=== PATIENT | male | born 1985 | race Hispanic/Latino ===

== ENCOUNTER 2017-03-17 00:18 | Emergency (ER) | payer OTHER ==
[~2017-03-17] VITALS: Ht 172.7 cm; Wt 100.0 kg
[2017-03-17] MEDS ORDERED: ULTRAM50 M1 PO (01:06)
[2017-03-17] MEDS ORDERED: AMOXICILLIN500 MG PO (01:06)
[2017-03-17 01:15] VITALS: BP 131/101
== END 2017-03-17 01:47 | disposition home or self-care (01) | DRG 159 ==
LOC: EDBD 00:18 → ED 00:18
DX: K04.7 Periapical abscess without sinus (principal); K08.89 Other specified disorders of teeth and supporting structures; S02.5XXA Fracture of tooth (traumatic), initial encounter for closed fracture

== ENCOUNTER 2022-05-17 21:34 | Emergency (ER) | payer SELFPAY ==
[~2022-05-17] VITALS: Ht 172.7 cm; Wt 106.0 kg
[~2022-05-17 21:34] MED LIST: AMOXICILLIN500 MG PO; ULTRAM50 M1 PO
[2022-05-17 23:07] LABS: BASO% 0.1 % (0-3); HEMATOCRIT 46.8 % (39.0-50.0); HEMOGLOBIN 15.5 g/dl (14.0-18.0); IMMATURE GRANULOCYTES 0.1 % (0.0-5.0); LYMPH% 14.5 % (15-41); MEAN CELL VOLUME 83.7 fL CALC (80.0-100.0); MEAN CORPUSCULAR HGB 27.7 pG CALC (26.0-32.0); MEAN CORPUSCULAR HGB CONC 33.1 g/dL CAL (32.0-36.0); MONO% 6.9 % (2-13); NEUT# 6.97 thou/uL (1.82-7.42); NEUT% 76.4 % (42-76); RED BLOOD COUNT 5.59 mill/uL (4.70-6.10); RED CELL DISTRI WIDTH 12.5 % (11.5-15.5)
[2022-05-17 23:17] LABS: ALBUMIN 4.6 g/dL (3.2-5.0); ALKALINE PHOSPHATASE 53 u/l (38-126); ANION GAP 13 (6-22 (CALC)); BUN 12 mg/dL (9-20); BUN/CREATININE RATIO 15 (12-20 (CALC)); CARBON DIOXIDE 23 mmol/l (22-30); CHLORIDE 107 mmol/l (95-108); CREATININE 0.8 mg/dL (0.7-1.3); GFR FOR AFR.AMER. > 60 ML/MIN (>=60 (CALC)); GFR OTHER RACES > 60 ML/MIN (>=60 (CALC)); POTASSIUM 3.2 mmol/l (3.5-5.1); SGOT/AST 47 u/l (17-59); SODIUM 140 mmol/l (137-146)
[2022-05-17] MEDS ORDERED: ATIVAN0.5 MG PO (23:57)
[2022-05-18 00:24] VITALS: BP 124/71
== END 2022-05-18 00:02 | disposition home or self-care (01) | DRG 880 ==
LOC: ED 21:34
PROVIDERS: Emergency Medicine
DX: F41.8 Other specified anxiety disorders (principal); I10 Essential (primary) hypertension